=== PATIENT | female | born 1945 | race Caucasian/White ===

== ENCOUNTER 2022-10-24 12:18 | Emergency (ER) | payer MEDICARE, OTHER ==
--- NOTE | 2022-10-24 12:36 | ED Physician Documentation ---
PD HPI UPPER EXT INJURY - Stated complaint Stated Complaint: FALL/R SHLDR INJ - Chief complaint Chief Complaint: Trauma Ext - History obtained from History obtained from: Patient - Additonal information Additional information: Healthy 77-year-old woman went out in the backyard to walk the dog this morning and had a simple slip and fall and hit her right shoulder on the ground. Minimal pain at rest but hurts very much if she moves at all. She is right- handed. There are no other injuries. Specifically no head or neck injury. She declines pain medication on initial evaluation. PD PAST MEDICAL HISTORY - Present Medications Home Medications: Ambulatory Orders Medication Instructions Recorded Confirmed HYDROcod/ACETAM 5/325 [[place] 5/325] 1 - 2 tab PO Q6H PRN #20 tablet 10/24/22 - Allergies Allergies/Adverse Reactions: Allergies Allergy/AdvReac Type Severity Reaction Status Date / Time No Known Drug Allergies Allergy Verified 10/24/22 12:30 PD ED PE NORMAL - Vitals Vital signs reviewed: Yes - General General: Alert and oriented X 3, No acute distress - Neck Neck: Supple, no meningeal sign, No bony TTP - Back Back: No spinal TTP, Other (No rib tenderness) - Extremities Extremities: Other (Quite tender to the right upper humerus, cannot range the shoulder at all due to pain. No clear deformity. No elbow or wrist tenderness on that side. Normal neurovascular function in the hand.) - Neuro Neuro: Alert and oriented X 3, Normal speech Eye Opening: Spontaneous Motor: Obeys Commands Verbal: Oriented GCS Score: 15 Results - Vitals Vitals: Vital Signs - 24 hr 10/24/22 10/24/22 10/24/22 12:28 13:57 14:10 Temperature 36.8 C Heart Rate 113 H 103 H 99 Respiratory 20 18 16 Rate Blood Pressure 170/78 H 179/87 H 169/80 H O2 Saturation 99 99 100 10/24/22 10/24/22 10/24/22 14:18 14:23 14:33 Temperature Heart Rate 93 93 96 Respiratory 19 22 16 Rate Blood Pressure 157/87 H 140/102 H 154/84 H O2 Saturation 98 99 100 10/24/22 14:56 Temperature Heart Rate 94 Respiratory 20 Rate Blood Pressure 158/82 H O2 Saturation 100 Oxygen O2 Source Room air - Rads (name of study) Three-view x-ray of the right humerus demonstrates a fracture dislocation of the humeral head and neck Radiology: Final report received, EMP read indepedently CT R shoulder Radiology: Final report received, EMP read indepedently Procedures - Reduction Body part reduced: Right, Shoulder Fracture or dislocation: Fracture dislocation Reduction aftercare: Alignment improved, Sling - Procedural sedation Sedation prep: Informed consent, PE performed, ASA 1 - healthy Sedation Medications: propofol (40mg IVP x 3 = total 120mg) Mallampati classification: II Patient status during sedation: Responds to tactile Sedation recovery: Recovered uneventfully Time in sedation (Minutes): 15 PD Medical Decision Making - ED course ED course: 77-year-old woman has an isolated right shoulder injury after mechanical fall with a fairly angulated and displaced humeral head neck fracture on x-ray. Our orthopedic surgeon, Dr. Rosales was not on-call but he was in the department and did recommend a trial of reduction with subsequent CT imaging to plan for potential operative fixation. He notes that reduction may not be successful given the appearance of the fracture fragments but reasonable to at least attempt it. 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 Discussed need for orthopedic follow-up, potential eventual surgical Fixation.. Departure - Departure Disposition: 01 Home, Self Care Clinical Impression: Fracture, humerus Qualifiers: Encounter type: initial encounter Humerus Location: surgical neck Fracture type: closed Fracture morphology: unspecified fracture morphology Fracture alignment: displaced Laterality: right Qualified Code(s): S42.211A - Unspecified displaced fracture of surgical neck of right humerus, initial encounter for closed fracture Condition: Good Record reviewed to determine appropriate education?: Yes Instructions: ED Fx Shoulder Follow-Up: [facility] [Provider Group] Prescriptions: HYDROcod/ACETAM 5/325 [[place]y 5/325] 1 - 2 tab PO Q6H PRN #20 tablet PRN Reason: Pain Comments: I sent your prescription electronically to the [facility] in [place]. As discussed you will need to follow-up with an orthopedic surgeon for further evaluation and treatment. Call the office today for an appointment sometime next week. Keep the sling on until then, I will be you can briefly remove it for bathing etc. You may find the button up shirts are easier to navigate than T-shirts and sweatshirts etc. I am prescribing a short course of narcotic pain medication for you. These are potentially dangerous and addictive medications that should be used carefully. These medications may constipate you. Take an [id number] stool softener (docusate) twice daily with plenty of water while taking these medications. If you go 24 hours without a bowel movement, take [id number] miralax, per package instructions. Do not drink or drive while taking these medications. If you received narcotic or sedating medications while in the emergency department, do not drive for 24 hours. Store this medication in a safe, secure place and out of reach of children. It is a violation of federal law to give or sell this medication to another person or to use in a manner other than prescribed. The ED will not refill narcotic prescriptions, including prescriptions lost or stolen. To dispose of unwanted medications: 1. [facility] at [address] in [place] has a medication drop box. They accept prescription medications (in pill form) Friday through Friday 9:00 a.m. to 5:00 p.m. 2. The [facility] [employer] accepts prescription medications (in pill form only) for disposal year round. Call for more information. 3. Contact the [facility] for the next [facility] sponsored prescription drug collection event. , [phone], or [phone]; Note that many narcotic pain relievers also contain Tylenol/acetaminophen. Please ensure that your total dose of acetaminophen from all sources does not exceed 3 g (3000 mg) per day.
[2022-10-24] MEDS ORDERED: PROPOFOL 200 MG/20 ML VIAL IVP STA ×2 (13:25→14:20)
--- NOTE | 2022-10-24 13:26 | XRAY Report ---
PROCEDURE: Humerus RT INDICATIONS: shoulder inj TECHNIQUE: 3 views of the humerus were acquired. COMPARISON: None FINDINGS: Bones: Moderately displaced and moderately angulated comminuted fracture of the humeral head and neck . Subluxation versus dislocation of the humeral head. No suspicious bony lesions. Soft tissues: No suspicious soft tissue calcifications. IMPRESSION: Fracture dislocation of the humeral head and neck. Reviewed by: Isabelle Avila MD on 10/24/2022 1:25 PM [facility] Approved by: Isabelle Avila MD on 10/24/2022 1:25 PM [facility] Station ID: [id number]
[2022-10-24] MEDS ORDERED: KETOROLAC 15 MG/ML VIAL IVP STA (14:24)
[2022-10-24] MEDS ORDERED: MORPHINE 2 MG/ML CARPUJECT IVP STA (14:24)
--- NOTE | 2022-10-24 14:54 | CT Report ---
PROCEDURE: UPPER EXTREMITY WO - RT INDICATIONS: Shoulder fracture, postreduction, possibly preop TECHNIQUE: Noncontrast 2 mm axial sections were acquired through the elbow joint, with coronal and sagittal refo rmats. For radiation dose reduction, the following was used: automated exposure control, adjustment of mA and/or kV according to patient size. COMPARISON: Plain films dated 10/24/2022 FINDINGS: Image quality: Excellent. Bones: As seen by plain film, there is a markedly displaced comminuted fracture of the humeral head and neck. Portion of the humeral head remains in joint. Displaced fracture fragments of the humeral h ead are located at the anteroinferior aspect of the joint. Moderate angulation of the fracture is pre sent. Soft tissues: Moderate soft tissue swelling surrounding the fracture fragments. Visualized lung pare nchyma within normal limits. IMPRESSION: Proximal humeral fracture as described above. Reviewed by: Isabelle Avila MD on 10/24/2022 2:52 PM PST Approved by: Isabelle Avila MD on 10/24/2022 2:52 PM PST Station ID: [id number]
[2022-10-24 15:41] VITALS: BP 155/89
== END 2022-10-24 15:54 | disposition home or self-care (01) ==
LOC: ED 12:18
DX: S42.211A Unspecified displaced fracture of surgical neck of right humerus, initial encounter for closed fracture (principal); W01.0XXA Fall on same level from slipping, tripping and stumbling without subsequent striking against object, initial encounter; Y93.K1 Activity, walking an animal; Y92.007 Garden or yard of unspecified non-institutional (private) residence as the place of occurrence of the external cause
CPT/HCPCS: 23605; 94770; 99152; 99153; 99284